=== PATIENT | male | born 1940 | race Hispanic/Latino ===

== ENCOUNTER 2020-12-24 09:43 | Outpatient (CLI) | payer MEDICARE ==
[2020-12-24 10:24] LABS: Estimated GFR-MDRD - POC Greater than 90
== END 2020-12-24 09:44 | disposition home or self-care (01) ==
LOC: BICMRI 09:43
PROVIDERS: ATTEND Nurse Practitioner Family
DX: R29.810 Facial weakness (principal)
CPT/HCPCS: 70553; 82565

== ENCOUNTER 2023-03-24 02:59 | Inpatient (IN) | payer MEDICARE ==
[2023-03-24] MEDS ORDERED: Morphine 4 MG/ML VIAL ONE (03:47)
[2023-03-24] MEDS ORDERED: Ketorolac Tromethamine 30 MG/ML VIAL ONE (03:47)
[2023-03-24] MEDS ORDERED: Ondansetron PF 4 MG/2 ML Vial ONE ×3 (03:47→16:26)
[2023-03-24 04:03] LABS: #Eosinphils 0.1 thou/uL (0.0-0.7); #Monocytes 0.9 thou/uL (0.11-0.59); #Neutrophils 8.4 thou/uL (1.40-6.50); %Basophils 0.3 % (0.0-1.0); %Eosinophils 1.1 % (0.0-10.0); %Lymphocytes 15.6 % (21.0-51.0); %Neutrophils 74.7 % (42.0-75.0); Hematocrit 39.1 % (42.0-52.0); Hemoglobin 13.3 g/dL (14.0-18.0); Mean Corpuscular Hemoglobin 30.6 pg (27.0-31.0); Mean Corpuscular Volume 90.1 fl (78.0-98.0); Mean Platelet Volume 11.4 fL (7.4-10.4); Platelet Count 192 10x3/uL (130-400); RBC Distribution Width 13.2 % (11.5-14.5); Red Blood Cell (RBC) Count 4.34 mill/uL (4.70-6.10); White Blood Cell (WBC) Count 11.3 10x3/uL (4.8-10.8)
[2023-03-24 04:29] LABS: ALT (SGPT) 22 U/L (8-55); AST (SGOT) 34 U/L (5-34); Albumin 4.4 g/dL (3.4-4.8); Alkaline Phosphatase 102 U/L (40-110); Anion Gap 14 mmol/L (10-20); BUN (Urea Nitrogen) 15 mg/dL (8.4-25.7); Bilirubin, Total 0.5 mg/dL (0.2-1.2); Calc. Creatinine Clearance 0 mL/min (70-130); Calcium 9.6 mg/dL (7.8-10.44); Carbon Dioxide 24 mmol/L (23-31); Chloride 105 mmol/L (98-107); Estimated GFR 89; Globulin 3.7 g/dL (2.4-3.5); Glucose 100 mg/dL (83-110); Potassium 5.1 mmol/L (3.5-5.1); Protein, Total 8.1 g/dL (5.8-8.1); Sodium 138 mmol/L (136-145)
[2023-03-24] MEDS ORDERED: Labetalol HCl 100 MG/20 ML VIAL ONE (06:04)
[2023-03-24] MEDS ORDERED: LORazepam 2 MG/ML SYR.(CARPUJECT) ONE (06:19)
[2023-03-24] MEDS ORDERED: CEFAZOLIN 2 GM in Sodium Chloride 0.9% 100 ML IVPB SCH (07:30)
[2023-03-24] MEDS ORDERED: Ipratropium/Albuterol 3 ML NEB NEB PRN (07:54)
[2023-03-24] MEDS ORDERED: Ondansetron PF 4 MG/2 ML Vial IVP PRN (07:54)
[2023-03-24] MEDS ORDERED: Morphine 2 MG/ML VIAL SLOW IVP PRN (07:54)
[2023-03-24] MEDS ORDERED: Sodium Chloride 0.9% 1,000 ML IV SCH (08:00)
[2023-03-24 09:11] VITALS: BMI 23.0
[2023-03-24] MEDS: Famotidine 20 MG TAB PO SCH ×2 (09:22→20:25)
[2023-03-24] MEDS ORDERED: Acetaminophen 325 MG TAB PO SCH (12:00)
[2023-03-24] MEDS: Acetaminophen 500 MG TAB PO SCH ×2 (13:45→23:08)
[2023-03-24] MEDS ORDERED: Iopamidol-370 76% 500 ML MDV (1 ML CHARGE) ONE (13:53)
[2023-03-24] MEDS ORDERED: fentaNYL PF 100 MCG/2 ML SYRINGE ONE (15:04)
[2023-03-24] MEDS ORDERED: traMADol HCl 50 MG TAB PO PRN (15:52)
[2023-03-24] MEDS ORDERED: Cyclobenzaprine 10 MG TAB PO PRN (15:52)
[2023-03-24] MEDS ORDERED: CEFAZOLIN 2 GM VIAL ONE (16:11)
[2023-03-24] MEDS ORDERED: Sodium Chloride 0.9% 100 ML ONE (16:11)
[2023-03-24] MEDS ORDERED: Calcium Chloride 1 GM/10 ML Abboject SYRINGE ONE (16:26)
[2023-03-24] MEDS ORDERED: Dexamethasone 20 MG/5 ML VIAL ONE (16:26)
[2023-03-24] MEDS ORDERED: PROPOFOL 200 MG/20 ML VIAL ONE (16:26)
[2023-03-24] MEDS ORDERED: Rocuronium Bromide 10 MG/ML (10ML VIAL) ONE (16:26)
[2023-03-24] MEDS ORDERED: Lidocaine 1% PF 5 ML VIAL ONE (16:26)
[2023-03-24] MEDS ORDERED: PHENYLEPHRINE-NS 100 MCG/ML 10 ML SYRINGE ONE (16:26)
[2023-03-24] MEDS ORDERED: ePHEDrine Sulfate 50 MG/10 ML VIAL ONE (16:26)
[2023-03-24] MEDS ORDERED: SUGAMMADEX SODIUM 200 MG/2 ML VIAL ONE (17:06)
[2023-03-24] MEDS ORDERED: Promethazine HCl 25 MG/ML VIAL IM PRN (17:32)
[2023-03-24] MEDS ORDERED: Ondansetron HCl/PF 4 MG/2 ML Vial IVP PRN (17:32)
[2023-03-24] MEDS ORDERED: fentaNYL 50 mcg/mL 1 mL Vial ONE ×2 (17:45→18:09)
[2023-03-24] MEDS: Senokot S 8.6-50 MG TAB PO SCH (20:25)
[2023-03-24] MEDS: Gabapentin 100 MG CAP PO SCH (20:25)
[2023-03-24] MEDS: traMADol HCl 50 MG TAB PO SCH ×2 (21:07→23:41)
[2023-03-24] MEDS: CEFAZOLIN 2 GM in Sodium Chloride 0.9% 100 ML IVPB SCH (23:42)
[2023-03-25] MEDS: traMADol HCl 50 MG TAB PO SCH ×4 (05:45→23:06)
[2023-03-25] MEDS: Acetaminophen 500 MG TAB PO SCH ×5 (05:46→23:06)
[2023-03-25 05:50] LABS: INR-International Normal Ratio 1.2
[2023-03-25 05:51] LABS: PTT 35.5 sec (22.9-36.1)
[2023-03-25 06:04] LABS: Anion Gap 10 mmol/L (10-20); BUN (Urea Nitrogen) 25 mg/dL (8.4-25.7); Calc. Creatinine Clearance 83 mL/min (70-130); Calcium 8.5 mg/dL (7.8-10.44); Carbon Dioxide 24 mmol/L (23-31); Chloride 108 mmol/L (98-107); Estimated GFR 91; Glucose 170 mg/dL (83-110); Potassium 4.3 mmol/L (3.5-5.1); Sodium 138 mmol/L (136-145)
[2023-03-25 06:35] LABS: #Neutrophils 10.5 thou/uL (1.40-6.50); %Basophils 0.1 % (0.0-1.0); %Lymphocytes 4.8 % (21.0-51.0); %Monocytes 8.3 % (0.0-10.0); %Neutrophils 86.5 % (42.0-75.0); Mean Corpuscular HGB CONC 33.7 g/dL (32.0-36.0); Mean Corpuscular Hemoglobin 31.1 pg (27.0-31.0); Mean Corpuscular Volume 92.1 fl (78.0-98.0); Mean Platelet Volume 10.8 fL (7.4-10.4); Platelet Count 124 10x3/uL (130-400); RBC Distribution Width 13.7 % (11.5-14.5); Red Blood Cell (RBC) Count 2.67 mill/uL (4.70-6.10); White Blood Cell (WBC) Count 12.1 10x3/uL (4.8-10.8)
[2023-03-25 06:48] LABS: Hematocrit 24.6 % (42.0-52.0); Hemoglobin 8.3 g/dL (14.0-18.0)
[2023-03-25] MEDS: Gabapentin 100 MG CAP PO SCH ×2 (08:33→20:10)
[2023-03-25] MEDS: Ferrous Sulfate 325 MG TAB PO SCH ×2 (08:35→16:54)
[2023-03-25] MEDS: Senokot S 8.6-50 MG TAB PO SCH ×2 (08:36→20:10)
[2023-03-25] MEDS: CEFAZOLIN 2 GM in Sodium Chloride 0.9% 100 ML IVPB SCH ×2 (08:36→16:55)
[2023-03-25] MEDS: Famotidine 20 MG TAB PO SCH ×2 (08:37→20:10)
[2023-03-25] MEDS: Ascorbic Acid 500 mg Chewable Tablet PO SCH ×2 (08:37→20:10)
[2023-03-25] MEDS ORDERED: Aspirin 81 mg Enteric Coated Tablet PO SCH (09:00)
[2023-03-26] MEDS: traMADol HCl 50 MG TAB PO SCH ×4 (06:17→23:00)
[2023-03-26] MEDS: Acetaminophen 500 MG TAB PO SCH ×4 (06:17→23:30)
[2023-03-26 08:04] LABS: #Monocytes 1.1 thou/uL (0.11-0.59); #Neutrophils 7.1 thou/uL (1.40-6.50); %Basophils 0.2 % (0.0-1.0); %Eosinophils 0.3 % (0.0-10.0); %Lymphocytes 14.6 % (21.0-51.0); %Monocytes 11.1 % (0.0-10.0); %Neutrophils 73.4 % (42.0-75.0); Hematocrit 23.5 % (42.0-52.0); Hemoglobin 7.7 g/dL (14.0-18.0); Mean Corpuscular HGB CONC 32.8 g/dL (32.0-36.0); Mean Corpuscular Hemoglobin 31.2 pg (27.0-31.0); Mean Corpuscular Volume 95.1 fl (78.0-98.0); Mean Platelet Volume 11.3 fL (7.4-10.4); Platelet Count 118 10x3/uL (130-400); Red Blood Cell (RBC) Count 2.47 mill/uL (4.70-6.10); White Blood Cell (WBC) Count 9.6 10x3/uL (4.8-10.8)
[2023-03-26] MEDS: Famotidine 20 MG TAB PO SCH ×2 (09:18→20:19)
[2023-03-26] MEDS: Gabapentin 100 MG CAP PO SCH ×2 (09:18→20:18)
[2023-03-26] MEDS: Ascorbic Acid 500 mg Chewable Tablet PO SCH ×2 (09:18→20:18)
[2023-03-26] MEDS: Ferrous Sulfate 325 MG TAB PO SCH ×2 (09:18→18:04)
[2023-03-26] MEDS: Polyethylene Glycol 3350 17 GM Packet PO SCH (09:19)
[2023-03-26] MEDS: Senokot S 8.6-50 MG TAB PO SCH ×2 (09:19→21:42)
[2023-03-26] MEDS: Aspirin 81 mg Enteric Coated Tablet PO SCH ×2 (09:19→20:18)
[2023-03-27] MEDS: Acetaminophen 500 MG TAB PO SCH ×4 (05:31→22:27)
[2023-03-27] MEDS: traMADol HCl 50 MG TAB PO SCH ×5 (05:32→22:27)
[2023-03-27 06:52] LABS: #Eosinphils 0.2 thou/uL (0.0-0.7); #Neutrophils 4.6 thou/uL (1.40-6.50); %Basophils 0.3 % (0.0-1.0); %Eosinophils 2.8 % (0.0-10.0); %Lymphocytes 25.4 % (21.0-51.0); %Neutrophils 58.4 % (42.0-75.0); Hematocrit 23.8 % (42.0-52.0); Hemoglobin 7.7 g/dL (14.0-18.0); Mean Corpuscular HGB CONC 32.4 g/dL (32.0-36.0); Mean Corpuscular Hemoglobin 30.4 pg (27.0-31.0); Mean Corpuscular Volume 94.1 fl (78.0-98.0); Mean Platelet Volume 11.6 fL (7.4-10.4); Platelet Count 117 10x3/uL (130-400); Red Blood Cell (RBC) Count 2.53 mill/uL (4.70-6.10); White Blood Cell (WBC) Count 7.9 10x3/uL (4.8-10.8)
[2023-03-27] MEDS: Famotidine 20 MG TAB PO SCH ×2 (08:56→20:27)
[2023-03-27] MEDS: Ferrous Sulfate 325 MG TAB PO SCH ×2 (08:56→20:28)
[2023-03-27] MEDS: Gabapentin 100 MG CAP PO SCH ×2 (08:56→20:28)
[2023-03-27] MEDS: Aspirin 81 mg Enteric Coated Tablet PO SCH ×2 (08:56→20:27)
[2023-03-27] MEDS: Ascorbic Acid 500 mg Chewable Tablet PO SCH ×2 (08:56→20:28)
[2023-03-27] MEDS: Polyethylene Glycol 3350 17 GM Packet PO SCH (08:58)
[2023-03-27] MEDS: Senokot S 8.6-50 MG TAB PO SCH ×2 (08:59→22:26)
[2023-03-28] MEDS: traMADol HCl 50 MG TAB PO SCH ×3 (05:30→17:36)
[2023-03-28] MEDS: Acetaminophen 500 MG TAB PO SCH (05:31)
[2023-03-28 06:53] LABS: #Eosinphils 0.2 thou/uL (0.0-0.7); #Monocytes 0.9 thou/uL (0.11-0.59); #Neutrophils 4.5 thou/uL (1.40-6.50); %Basophils 0.3 % (0.0-1.0); %Eosinophils 2.8 % (0.0-10.0); %Lymphocytes 22.3 % (21.0-51.0); %Neutrophils 62.5 % (42.0-75.0); Hemoglobin 8.2 g/dL (14.0-18.0); Mean Corpuscular HGB CONC 32.8 g/dL (32.0-36.0); Mean Corpuscular Hemoglobin 31.2 pg (27.0-31.0); Mean Corpuscular Volume 95.1 fl (78.0-98.0); Mean Platelet Volume 10.9 fL (7.4-10.4); Platelet Count 130 10x3/uL (130-400); Red Blood Cell (RBC) Count 2.63 mill/uL (4.70-6.10); White Blood Cell (WBC) Count 7.2 10x3/uL (4.8-10.8)
[2023-03-28] MEDS: Ascorbic Acid 500 mg Chewable Tablet PO SCH ×2 (08:32→20:36)
[2023-03-28] MEDS: Famotidine 20 MG TAB PO SCH ×2 (08:33→20:36)
[2023-03-28] MEDS: Aspirin 81 mg Enteric Coated Tablet PO SCH ×2 (08:33→20:36)
[2023-03-28] MEDS: Ferrous Sulfate 325 MG TAB PO SCH ×2 (08:34→20:36)
[2023-03-28] MEDS: Gabapentin 100 MG CAP PO SCH (08:35)
[2023-03-28] MEDS: Senokot S 8.6-50 MG TAB PO SCH ×2 (08:38→20:36)
[2023-03-28] MEDS: Polyethylene Glycol 3350 17 GM Packet PO SCH (08:38)
[2023-03-28] MEDS ORDERED: Acetaminophen 500 MG TAB PO SCH (10:02)
[2023-03-28] MEDS ORDERED: traMADol HCl 50 MG TAB PO PRN (10:03)
[2023-03-28] MEDS ORDERED: Cyclobenzaprine 10 MG TAB PO PRN (10:03)
[2023-03-28] MEDS: Acetaminophen 325 MG TAB PO SCH ×2 (11:40→17:35)
[2023-03-29] MEDS: Acetaminophen 325 MG TAB PO SCH ×3 (00:17→12:48)
[2023-03-29] MEDS: traMADol HCl 50 MG TAB PO SCH ×2 (00:18→06:47)
[2023-03-29] MEDS ORDERED: Morphine 4 MG/ML VIAL SLOW IVP SCH (03:45)
[2023-03-29] MEDS ORDERED: hydrALAZINE 20 MG/ML VIAL SLOW IVP PRN (08:38)
[2023-03-29] MEDS ORDERED: Lisinopril 10 MG TAB PO SCH (09:00)
[2023-03-29] MEDS: Polyethylene Glycol 3350 17 GM Packet PO SCH (09:24)
[2023-03-29] MEDS: Famotidine 20 MG TAB PO SCH (09:24)
[2023-03-29] MEDS: Senokot S 8.6-50 MG TAB PO SCH (09:24)
[2023-03-29] MEDS: Ferrous Sulfate 325 MG TAB PO SCH (09:24)
[2023-03-29] MEDS: Aspirin 81 mg Enteric Coated Tablet PO SCH (09:24)
[2023-03-29] MEDS: Ascorbic Acid 500 mg Chewable Tablet PO SCH (09:25)
[2023-03-29] MEDS ORDERED: Acetaminophen/Codeine 30-300mg Tablet PO SCH (12:00)
[2023-03-29 13:27] VITALS: BP 131/66; TEMP 98.5
== END 2023-03-29 14:15 | DRG 481 ==
LOC: ERS 02:59 → SJJU 08:44
PROVIDERS: ADMIT Surgery; ATTEND Surgery
PROC: 0QS704Z Reposition Left Upper Femur with Internal Fixation Device, Open Approach (ICD-10-PCS; principal; 2023-03-24)
PROC: 30233N1 Transfusion of Nonautologous Red Blood Cells into Peripheral Vein, Percutaneous Approach (ICD-10-PCS; 2023-03-28)
DX: S72.142A Displaced intertrochanteric fracture of left femur, initial encounter for closed fracture (principal); D62 Acute posthemorrhagic anemia; M84.48XA Pathological fracture, other site, initial encounter for fracture; F03.90 Unspecified dementia, unspecified severity, without behavioral disturbance, psychotic disturbance, mood disturbance, and anxiety; E78.5 Hyperlipidemia, unspecified; I10 Essential (primary) hypertension; W19.XXXA Unspecified fall, initial encounter; I99.8 Other disorder of circulatory system; I95.1 Orthostatic hypotension; Z88.5 Allergy status to narcotic agent; Y92.002 Bathroom of unspecified non-institutional (private) residence as the place of occurrence of the external cause
CPT/HCPCS: 36415; 36416; 36430; 70450; 70486; 70496; 70498; 71045; 80048; 80053; 85025; 85610; 85730; 86850; 86900; 86901; 93005; 96374; 96375; C1713; J1100; J1885; J2060; J2270; J2405; J2704; J3010; J3490; J7050; P9016; Q9967

== ENCOUNTER 2023-04-26 14:44 | Outpatient (CLI) | payer MEDICARE | END 2023-04-26 14:45 | disposition home or self-care (01) | LOC: ULT 14:44 | PROVIDERS: ATTEND Orthopaedic Surgery | DX: S72.142D Displaced intertrochanteric fracture of left femur, subsequent encounter for closed fracture with routine healing (principal) ==

== ENCOUNTER 2023-06-07 11:22 | Emergency (ER) | payer MEDICARE, OTHER ==
[2023-06-07 13:44] LABS: #Eosinphils 0.5 thou/uL (0.0-0.7); #Monocytes 0.8 thou/uL (0.11-0.59); #Neutrophils 4.5 thou/uL (1.40-6.50); %Basophils 0.4 % (0.0-1.0); %Eosinophils 6.6 % (0.0-10.0); %Lymphocytes 17.3 % (21.0-51.0); %Monocytes 10.9 % (0.0-10.0); %Neutrophils 64.5 % (42.0-75.0); Hematocrit 36.6 % (42.0-52.0); Hemoglobin 11.7 g/dL (14.0-18.0); Mean Corpuscular Volume 90.8 fl (78.0-98.0); Mean Platelet Volume 10.5 fL (7.4-10.4); Platelet Count 198 10x3/uL (130-400); Red Blood Cell (RBC) Count 4.03 mill/uL (4.70-6.10)
[2023-06-07 13:53] LABS: Bacteria/HPF None Seen HPF (None Seen); Bilirubin Negative (Negative); Blood, Urine Negative (Negative); CAUTI Indications for Culture Alt mental st,lethar; Clarity Clear (Clear); Glucose, Urine (Dipstick) Normal (Negative); Ketone, Urine Negative (Negative); Leukocyte Negative Leu/uL (Negative); Nitrite Negative (Negative); Protein, Urine (Dipstick) Negative (Neg-Trace); RBC/HPF 0-3 HPF (0-3); Specific Gravity, Urine 1.019 (1.002-1.036); Squamous Epithelial None Seen HPF (0-3); Urobilinogen Normal mg/dL (Less than 2); WBC/HPF 0-3 HPF (0-3)
[2023-06-07 13:58] LABS: Urine Culture Reflex No No
[2023-06-07 14:07] LABS: Prothrombin Time 13.6 sec (12.0-14.7)
[2023-06-07 14:15] LABS: ALT (SGPT) 14 U/L (8-55); AST (SGOT) 17 U/L (5-34); Albumin 3.6 g/dL (3.4-4.8); Alkaline Phosphatase 115 U/L (40-110); Anion Gap 13 mmol/L (10-20); BUN (Urea Nitrogen) 16 mg/dL (8.4-25.7); Bilirubin, Total 0.4 mg/dL (0.2-1.2); Calc. Creatinine Clearance 0 mL/min (70-130); Calcium 8.8 mg/dL (7.8-10.44); Carbon Dioxide 24 mmol/L (23-31); Chloride 107 mmol/L (98-107); Estimated GFR 93; Globulin 3.6 g/dL (2.4-3.5); Glucose 108 mg/dL (83-110); Potassium 4.2 mmol/L (3.5-5.1); Protein, Total 7.2 g/dL (5.8-8.1); Sodium 140 mmol/L (136-145)
[2023-06-07 14:18] LABS: Troponin I Less than 0.010 ng/mL (< 0.028)
== END 2023-06-07 15:00 | disposition home or self-care (01) ==
LOC: ERS 11:22
DX: F03.90 Unspecified dementia, unspecified severity, without behavioral disturbance, psychotic disturbance, mood disturbance, and anxiety (principal); R26.9 Unspecified abnormalities of gait and mobility
CPT/HCPCS: 36415; 51701; 70450; 71045; 72125; 80053; 81001; 83735; 83880; 84484; 85025; 85610; 85730; 93005

== ENCOUNTER 2023-08-03 13:47 | Inpatient (IN) | payer MEDICARE ==
[2023-08-03 14:25] LABS: #Eosinphils 0.2 thou/uL (0.0-0.7); #Monocytes 0.6 thou/uL (0.11-0.59); #Neutrophils 4.1 thou/uL (1.40-6.50); %Basophils 0.3 % (0.0-1.0); %Eosinophils 3.1 % (0.0-10.0); %Lymphocytes 19.6 % (21.0-51.0); %Neutrophils 66.7 % (42.0-75.0); Hematocrit 35.7 % (42.0-52.0); Hemoglobin 11.6 g/dL (14.0-18.0); Mean Corpuscular HGB CONC 32.5 g/dL (32.0-36.0); Mean Corpuscular Hemoglobin 28.9 pg (27.0-31.0); Mean Corpuscular Volume 88.8 fl (78.0-98.0); Platelet Count 191 10x3/uL (130-400); Red Blood Cell (RBC) Count 4.02 mill/uL (4.70-6.10); White Blood Cell (WBC) Count 6.1 10x3/uL (4.8-10.8)
[2023-08-03 14:46] LABS: ALT (SGPT) 13 U/L (8-55); AST (SGOT) 17 U/L (5-34); Albumin 3.5 g/dL (3.4-4.8); Alkaline Phosphatase 145 U/L (40-110); Anion Gap 13 mmol/L (10-20); BUN (Urea Nitrogen) 13 mg/dL (8.4-25.7); Bilirubin, Total 0.3 mg/dL (0.2-1.2); Calc. Creatinine Clearance 0 mL/min (70-130); Calcium 8.9 mg/dL (7.8-10.44); Carbon Dioxide 25 mmol/L (23-31); Chloride 106 mmol/L (98-107); Estimated GFR 89; Globulin 3.5 g/dL (2.4-3.5); Glucose 122 mg/dL (83-110); Potassium 4.3 mmol/L (3.5-5.1); Sodium 140 mmol/L (136-145)
[2023-08-03] MEDS ORDERED: Morphine 2 MG/ML VIAL SLOW IVP PRN (16:24)
[2023-08-03] MEDS ORDERED: Ipratropium/Albuterol 3 ML NEB NEB PRN (16:24)
[2023-08-03] MEDS ORDERED: Ondansetron PF 4 MG/2 ML Vial IVP PRN (16:24)
[2023-08-03] MEDS ORDERED: Acetaminophen 500 MG TAB ONE (16:38)
[2023-08-03] MEDS ORDERED: CEFAZOLIN 2 GM in Sodium Chloride 0.9% 100 ML IVPB SCH (17:00)
[2023-08-03 18:18] VITALS: BMI 24.3
[2023-08-03] MEDS: Sodium Chloride 0.9% 1,000 ML IV SCH (18:26)
[2023-08-03] MEDS: Acetaminophen/Codeine 30-300mg Tablet PO SCH (18:32)
[2023-08-03] MEDS: Senokot S 8.6-50 MG TAB PO SCH (21:15)
[2023-08-03] MEDS: Famotidine/PF 20 mg/2ml Vial SLOW IVP SCH (21:15)
[2023-08-04 04:02] LABS: #Eosinphils 0.1 thou/uL (0.0-0.7); #Neutrophils 5.9 thou/uL (1.40-6.50); %Basophils 0.4 % (0.0-1.0); %Eosinophils 1.2 % (0.0-10.0); %Lymphocytes 13.7 % (21.0-51.0); %Monocytes 11.8 % (0.0-10.0); %Neutrophils 72.7 % (42.0-75.0); Hematocrit 32.6 % (42.0-52.0); Hemoglobin 10.5 g/dL (14.0-18.0); Mean Corpuscular HGB CONC 32.2 g/dL (32.0-36.0); Mean Corpuscular Hemoglobin 28.3 pg (27.0-31.0); Mean Corpuscular Volume 87.9 fl (78.0-98.0); Mean Platelet Volume 10.4 fL (7.4-10.4); Platelet Count 170 10x3/uL (130-400); RBC Distribution Width 14.2 % (11.5-14.5); Red Blood Cell (RBC) Count 3.71 mill/uL (4.70-6.10); White Blood Cell (WBC) Count 8.2 10x3/uL (4.8-10.8)
[2023-08-04 04:15] LABS: INR-International Normal Ratio 1.2; Prothrombin Time 14.7 sec (12.0-14.7)
[2023-08-04 04:16] LABS: PTT 34.7 sec (22.9-36.1)
[2023-08-04 04:35] LABS: Anion Gap 10 mmol/L (10-20); BUN (Urea Nitrogen) 16 mg/dL (8.4-25.7); Calc. Creatinine Clearance 93 mL/min (70-130); Calcium 8.6 mg/dL (7.8-10.44); Carbon Dioxide 25 mmol/L (23-31); Chloride 107 mmol/L (98-107); Estimated GFR 91; Glucose 109 mg/dL (83-110); Potassium 4.1 mmol/L (3.5-5.1); Sodium 138 mmol/L (136-145)
[2023-08-04] MEDS ORDERED: traMADol HCl 50 MG TAB PO PRN (06:35)
[2023-08-04] MEDS: Ketorolac Tromethamine 30 MG (1 mL) VIAL IVP SCH ×2 (07:12→12:30)
[2023-08-04] MEDS ORDERED: PROPOFOL 40 ML ONE (09:31)
[2023-08-04] MEDS ORDERED: Fentanyl 250 MCG/5 ML VIAL ONE (09:32)
[2023-08-04] MEDS ORDERED: CEFAZOLIN 2 GM VIAL ONE (09:34)
[2023-08-04] MEDS ORDERED: Sodium Chloride 0.9% 100 ML ONE (09:34)
[2023-08-04] MEDS ORDERED: Rocuronium Bromide 10 MG/ML (10ML VIAL) ONE (09:55)
[2023-08-04] MEDS ORDERED: Dexamethasone 4 mg/ml Vial ONE (10:02)
[2023-08-04] MEDS ORDERED: Ondansetron PF 4 MG/2 ML Vial ONE (10:02)
[2023-08-04] MEDS ORDERED: ePHEDrine Sulfate 50 MG/10 ML VIAL ONE (10:03)
[2023-08-04] MEDS: Rosuvastatin 20 MG TAB PO SCH (10:03)
[2023-08-04] MEDS ORDERED: SUGAMMADEX SODIUM 200 MG/2 ML VIAL ONE (10:29)
[2023-08-04] MEDS: traMADol HCl 50 MG TAB PO SCH (12:31)
[2023-08-04] MEDS: CEFAZOLIN 2 GM in Sodium Chloride 0.9% 100 ML IVPB SCH (14:53)
[2023-08-04] MEDS: Melatonin 3 MG TAB PO SCH (21:18)
[2023-08-04] MEDS: traZODone HCl 50 MG TAB PO PRN (21:19)
[2023-08-05] MEDS: FLUoxetine HCl 20 MG CAP PO SCH (08:11)
[2023-08-05] MEDS: Lactulose 20 GM (30 mL) UDCUP PO SCH (09:40)
[2023-08-05] MEDS: Clopidogrel Bisulfate 75 MG TAB PO SCH (09:41)
[2023-08-06 07:19] LABS: Hematocrit 26.8 % (42.0-52.0); Hemoglobin 8.6 g/dL (14.0-18.0)
[2023-08-06] MEDS: Ferrous Sulfate 325 MG TAB PO SCH (08:57)
[2023-08-06] MEDS: Ascorbic Acid 500 mg Chewable Tablet PO SCH (08:57)
[2023-08-06] MEDS: Aspirin 81 mg Enteric Coated Tablet PO SCH (08:57)
[2023-08-06] MEDS: Lisinopril 10 MG TAB PO SCH (08:58)
[2023-08-06] MEDS: Milk Of Magnesia 30 ML UDCUP PO SCH (09:00)
[2023-08-06] MEDS: Docusate 100 MG CAP PO SCH (09:01)
[2023-08-07 04:50] LABS: #Eosinphils 0.2 thou/uL (0.0-0.7); #Neutrophils 4.3 thou/uL (1.40-6.50); %Basophils 0.3 % (0.0-1.0); %Eosinophils 3.3 % (0.0-10.0); %Lymphocytes 21.9 % (21.0-51.0); %Monocytes 13.6 % (0.0-10.0); %Neutrophils 60.8 % (42.0-75.0); Hematocrit 26.3 % (42.0-52.0); Hemoglobin 8.3 g/dL (14.0-18.0); Mean Corpuscular HGB CONC 31.6 g/dL (32.0-36.0); Mean Corpuscular Hemoglobin 28.4 pg (27.0-31.0); Mean Corpuscular Volume 90.1 fl (78.0-98.0); Mean Platelet Volume 10.3 fL (7.4-10.4); Platelet Count 155 10x3/uL (130-400); RBC Distribution Width 14.5 % (11.5-14.5); Red Blood Cell (RBC) Count 2.92 mill/uL (4.70-6.10)
[2023-08-07] MEDS: Famotidine 20 MG TAB PO SCH (08:23)
[2023-08-07] MEDS: Acetaminophen 325 MG TAB PO SCH (12:50)
[2023-08-11 11:15] VITALS: BP 119/64; TEMP 97.8
== END 2023-08-11 15:10 | DRG 481 ==
LOC: ERS 13:47 → OBSVTOIN 18:14 → SURG A 18:14
PROVIDERS: ADMIT Student in an Organized Health Care Education/Training Program; ATTEND Student in an Organized Health Care Education/Training Program
PROC: 0QS604Z Reposition Right Upper Femur with Internal Fixation Device, Open Approach (ICD-10-PCS; principal; 2023-08-04)
PROC: 3E033XZ Introduction of Vasopressor into Peripheral Vein, Percutaneous Approach (ICD-10-PCS; 2023-08-04)
DX: S72.141A Displaced intertrochanteric fracture of right femur, initial encounter for closed fracture (principal); D62 Acute posthemorrhagic anemia; I10 Essential (primary) hypertension; E78.5 Hyperlipidemia, unspecified; G89.11 Acute pain due to trauma; W18.30XA Fall on same level, unspecified, initial encounter; F41.9 Anxiety disorder, unspecified; Z88.5 Allergy status to narcotic agent; Z98.890 Other specified postprocedural states
CPT/HCPCS: 36415; 71045; 80048; 80053; 85014; 85018; 85025; 85610; 85730; 86850; 86900; 86901; 93005; C1713; J1100; J1885; J2405; J2704; J3010; J3490; J7050; S0028